=== PATIENT | female | born 1965 | race Caucasian/White ===

== ENCOUNTER 2018-05-28 19:38 | Inpatient (IN) | payer MEDICARE, MEDICAID ==
[2018-05-28 20:45] LABS: ABS Basophils 0.1 10^3/ul (0-0.2); ABS Eosinophils 0.2 10^3/ul (0-0.6); ABS Lymphocytes 3.2 10^3/ul (1.0-4.8); ABS Monocytes 0.5 10^3/ul (0-0.8); ABS Neutrophils 4.2 10^3/ul (1.5-7.7); ABS Nucleated RBC 0 10^3/ul; Eosinophil % 2.1 %; Hematocrit 42 % (35-47); Hemoglobin 14.6 g/dl (12.0-16.0); Lymphocyte % 39.2 %; Mean Corpuscular HGB Conc 34 g/dl (31-36); Mean Corpuscular Hemoglobin 33 pg (27-31); Mean Corpuscular Volume 95 fL (80-97); Nucleated Red Blood Cells % 0; Platelet Count 355 10^3/ul (150-450); Red Blood Count 4.47 10^6/ul (4.00-5.40); Red Cell Distribution Width 13 % (10.5-15); White Blood Count 8.1 10^3/ul (3.5-10.8)
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
[2018-05-28 20:57] LABS: Urine Appearance Clear; Urine Bilirubin Negative (Negative); Urine Blood Negative (Negative); Urine Color Straw; Urine Glucose Negative (Negative); Urine Ketones Negative (Negative); Urine Nitrite Negative (Negative); Urine Protein Negative (Negative); Urine Specific Gravity 1.003 (1.010-1.030); Urine Urobilinogen Negative (Negative)
[2018-05-28 21:03] LABS: ALT 20 U/L (7-52); AST 19 U/L (13-39); Albumin 4.3 g/dL (3.2-5.2); Albumin/Globulin Ratio 1.8 (1-3); Alkaline Phosphatase 66 U/L (34-104); Anion Gap 5 mmol/L (2-11); BUN/Creatinine Ratio 12.6 (8-20); Blood Urea Nitrogen 11 mg/dL (6-24); CO2 Carbon Dioxide 25 mmol/L (22-32); Calcium 9.3 mg/dL (8.6-10.3); Chloride 108 mmol/L (101-111); EGFR Non-African American 68.6 (>60); Globulin 2.4 g/dL (2-4); Glucose 109 mg/dL (70-100); Potassium 4.2 mmol/L (3.5-5.0); Sodium 138 mmol/L (135-145); Total Protein 6.7 g/dL (6.4-8.9)
[2018-05-28 21:08] LABS: Acetaminophen < 15 mcg/mL; Alcohol < 10 mg/dL (<10); Salicylate < 2.50 mg/dL (<30)
[2018-05-28 21:09] LABS: HCG Pregnancy < 0.60 mIU/mL
[2018-05-28 21:19] LABS: Barbiturates Urine Screen None Detected (None Detect); Benzodiazepine Urine Screen None Detected (None Detect); Urine Cannabinoids Screen None Detected (None Detect)
[2018-05-28 21:22] LABS: TSH (Thyroid Stimulating Horm) 2.53 mcIU/mL (0.34-5.60)
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
[2018-05-29] MEDS ORDERED: SUMAtriptan TAB* 50 MG PO PRN (13:43)
[2018-05-29] MEDS ORDERED: Albuterol HFA INHALER* 8 gm MDI INH PRN (13:43)
[2018-05-29] MEDS ORDERED: Mouth Piece, Nicotine* 1 EACH CARTRIDGE INH SCH (13:45)
[2018-05-29] MEDS ORDERED: Acetaminophen TAB* 325 MG PO PRN (13:45)
[2018-05-29] MEDS ORDERED: Al Hydrox/Mg Hydrox/Simet LIQ* 30 ML UDC PO PRN (13:45)
[2018-05-29] MEDS ORDERED: Nicotine GUM* 2 MG PO PRN (13:45)
[2018-05-29] MEDS: clonazePAM TAB(*) 1 MG PO SCH (22:13)
[2018-05-29] MEDS: Mometasone/Formoter 200/5 MDI INH SCH (22:15)
[2018-05-30] MEDS: Mometasone/Formoter 200/5 MDI INH SCH ×2 (08:51→21:24)
[2018-05-30] MEDS: Nicotine Inhaler* 10 MG AMP INH PRN ×2 (08:53→20:48)
[2018-05-30] MEDS: Vitamin THERAPEUTIC TAB PO SCH (08:54)
[2018-05-30] MEDS: Amitriptyline TAB* 10 MG PO SCH (13:59)
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
[2018-05-30] MEDS: clonazePAM TAB(*) 1 MG PO SCH (20:45)
[2018-05-31] MEDS: Nicotine Inhaler* 10 MG AMP INH PRN ×4 (04:10→17:05)
[2018-05-31] MEDS: Mometasone/Formoter 200/5 MDI INH SCH ×2 (08:34→20:40)
[2018-05-31] MEDS: Amitriptyline TAB* 10 MG PO SCH (08:34)
[2018-05-31] MEDS: Vitamin THERAPEUTIC TAB PO SCH (09:01)
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
[2018-05-31] MEDS: clonazePAM TAB(*) 1 MG PO SCH (20:37)
[2018-05-31] MEDS: QUEtiapine TAB* 100 MG PO SCH (20:38)
[2018-06-01] MEDS: Amitriptyline TAB* 10 MG PO SCH (07:42)
[2018-06-01] MEDS: Vitamin THERAPEUTIC TAB PO SCH (07:42)
[2018-06-01] MEDS: Mometasone/Formoter 200/5 MDI INH SCH ×2 (07:45→19:09)
[2018-06-01] MEDS: Nicotine Inhaler* 10 MG AMP INH PRN ×3 (12:27→19:10)
--- NOTE | 2018-06-01 16:31 | PN ---
Subjective - Subjective Date of Service: 06/01/18 Service Type: 05485 Hosp care 15 min low complexity Subjective: Fitz appears to be feeling better with regards to her mood and thinking. She sounds positive about herself and accepting of treatments here. Reports that meds and over all the hospitalization helped. Optimistic about the aftercare plans as most of it looks favorable to her. Denies, hallucinations, delusions or SI/HI. Objective - Appearance Appearance: Healthy Appearing, Obese Dysmorphic Features: No Hygiene: Normal Grooming: Well Kept - Behavior Psychomotor Activities: Normal - Attitude and Relatedness Attitude and Relatedness: Appropriate Eye Contact: Good - Speech Quality: Unpressured Latencies: Normal Quantity: Appropriate - Mood Patient's Decription of Mood: "Okay" - Affect Observed Affect: Non-labile Affect Consistent with: Euthymia - Thought Process Patient's Thought Process: Coherent, Goal Directed Thought Content: No Passive Wish, No Suicidal Planning, No Homicidal Ideation, No Paranoid Ideation - Sensorium Experiencing Hallucinations: No, Sensorium is Clear Type of Hallucinations: Visual: No, Auditory: No, Command: No - Level of Consciousness Level of Consciousness: Alert Orientation: Yes Intact, Yes Orientated to Time, Yes Orientated to Place, Yes Orientated to Person - Impulse Control Impulse Control: Intact - Insight and Judgement Insight and Judgement: Fair - Group Participation Particating in Group Activities: No - Medication Management Medication Management Adherence: Yes Assessment - Assessment Merits Inpatient Hospitalization: For Immediate Safety, For Stabilization, Pending Safe DC Plan Inpatient DSM-V Dx: F43.23 Clinical Impression: Underlying personality disorder and PTSD, but acute adjustment disorder leading to suicideal ideation and suicide risk. Multiple stressors require psychotherapy and stabilization. Requires safe discharge planning including developing social supports and referral to actual outpatient mental health provider. Will restart Seroquel at slightly increased dose since she has both anxiety and PTSD. She values benzodiazepines but I would not increase them and would actually consider a taper. Plan - Plan Treatment Plan: Name: FITZ GRANT Birthdate: 1965 [id number] Continued Medication Management: Continue Outpt Medication Medications: Current Medications Acetaminophen (Tylenol Tab*) 650 mg PO Q4H PRN PRN Reason: PAIN or TEMP > 101 F Al Hydrox/Mg Hydrox/Simethicone (Maalox Plus*) 30 ml PO Q4H PRN PRN Reason: INDIGESTION Albuterol (Ventolin Hfa Inhaler*) 2 puff INH Q4H PRN PRN Reason: SHORTNESS OF BREATH Last Admin: 05/30/18 08:51 Dose: 2 puff Amitriptyline HCl (Elavil Tab*) 10 mg PO DAILY [facility] Last Admin: 06/01/18 07:42 Dose: 10 mg Clonazepam (Klonopin Tab(*)) 2 mg PO BEDTIME [facility] Last Admin: 05/31/18 20:37 Dose: 2 mg Device (Nicotine Mouth Piece*) 1 each INH .CARTRIDGE [facility] Last Admin: 05/30/18 08:53 Dose: 1 each Mometasone Furoate/Formoterol Fumar (Dulera 200/5 Mdi*) 2 puff INH BID [facility] Last Admin: 06/01/18 07:45 Dose: 2 puff Multivitamins (Theragran Tab*) 1 tab PO DAILY [facility] Last Admin: 06/01/18 07:42 Dose: 1 tab Nicotine (Nicotine Inhaler*) 10 mg INH Q2H PRN PRN Reason: CRAVING Last Admin: 06/01/18 15:42 Dose: 10 mg Nicotine Polacrilex (Nicotine Gum*) 2 mg PO Q2H PRN PRN Reason: CRAVING Quetiapine Fumarate (Seroquel Tab*) 200 mg PO BEDTIME [facility] Last Admin: 05/31/18 20:38 Dose: 200 mg Sumatriptan Succinate (Imitrex Tab*) 50 mg PO DAILY PRN PRN Reason: MIGRAINE HEADACHE Last Admin: 05/30/18 22:19 Dose: 50 mg - Discharge Plan Discharge Plan: Outpatient Follow Up Outpatient Program: [facility]
[2018-06-01] MEDS: clonazePAM TAB(*) 1 MG PO SCH (19:08)
[2018-06-01] MEDS: QUEtiapine TAB* 100 MG PO SCH (19:08)
[2018-06-02] MEDS: Nicotine Inhaler* 10 MG AMP INH PRN ×3 (04:58→12:19)
[2018-06-02 08:44] VITALS: BP 116/86
[2018-06-02] MEDS: Vitamin THERAPEUTIC TAB PO SCH (09:39)
[2018-06-02] MEDS: Mometasone/Formoter 200/5 MDI INH SCH (09:39)
[2018-06-02] MEDS: Amitriptyline TAB* 10 MG PO SCH (09:39)
--- NOTE | 2018-06-02 13:35 | DCNOTE ---
Subjective - Subjective Service Types: 21105 Hosp DC Day Mgmt simple under 30 min Discharge Date: 06/02/18 Subjective: Patient reports desire to leave hospital in order to attend to her dog and other responsibilities. She denies SI, passive wish or urges for self harm. She states intent to relocate back to [place] in a few months. She agrees to follow up with outpatient mental health services. We discuss the importance of therapy and identifying ways to cope with prior trauma. Objective - Appearance Appearance: Well Developed/Nourished Dysmorphic Features: No Hygiene: Normal Grooming: Fairly Well Kept - Behavior Psychomotor Activities: Normal Exhibits Abnormal Movement: No - Attitude and Relatedness Attitude and Relatedness: Cooperative Eye Contact: Good - Speech Quality: Unpressured Latencies: Normal Quantity: Appropriate - Mood Patient's Decription of Mood: "Okay" - Thought Process Patient's Thought Process: Coherent, Goal Directed Thought Content: No Passive Wish, No Suicidal Planning, No Homicidal Ideation, No Paranoid Ideation - Sensorium Experiencing Hallucinations: No, Sensorium is Clear Type of Hallucinations: Visual: No, Auditory: No, Command: No - Level of Consciousness Orientation: Yes Intact, Yes Orientated to Time, Yes Orientated to Place, Yes Orientated to Person - Impulse Control Impulse Control: Intact - Insight and Judgement Insight and Judgement: Fair - Group Participation Particating in Group Activities: No - Medication Management Medication Management Adherence: Yes DC Assessment - Assessment Clinical Impression: 53yo wf, domiciled who presented to ED with suicidal ideation in the context of an argument with significant other. She no longer meets criteria for acute hospitalization. Merits Inpatient Hospitalization: No Clear for Discharge: Acceptable Safety Profile, Low Utility of Inpt Care Inpatient DSM-V Dx: F43.12 Discharge Planning - Discharge Planning Discharge Plan: Outpatient Follow Up Outpatient Program: [facility] Recommendations for Continuing Care: Medication Management, Psychotherapy Medications: Current Medications Acetaminophen (Tylenol Tab*) 650 mg PO Q4H PRN PRN Reason: PAIN or TEMP > 101 F Al Hydrox/Mg Hydrox/Simethicone (Maalox Plus*) 30 ml PO Q4H PRN PRN Reason: INDIGESTION Albuterol (Ventolin Hfa Inhaler*) 2 puff INH Q4H PRN PRN Reason: SHORTNESS OF BREATH Last Admin: 05/30/18 08:51 Dose: 2 puff Amitriptyline HCl (Elavil Tab*) 10 mg PO DAILY [facility] Last Admin: 06/02/18 09:39 Dose: 10 mg Clonazepam (Klonopin Tab(*)) 2 mg PO BEDTIME [facility] Last Admin: 06/01/18 19:08 Dose: 2 mg Device (Nicotine Mouth Piece*) 1 each INH .CARTRIDGE [facility] Last Admin: 05/30/18 08:53 Dose: 1 each Mometasone Furoate/Formoterol Fumar (Dulera 200/5 Mdi*) 2 puff INH BID [facility] Last Admin: 06/02/18 09:39 Dose: 2 puff Multivitamins (Theragran Tab*) 1 tab PO DAILY [facility] Last Admin: 06/02/18 09:39 Dose: Not Given Nicotine (Nicotine Inhaler*) 10 mg INH Q2H PRN PRN Reason: CRAVING Last Admin: 06/02/18 12:19 Dose: 10 mg Nicotine Polacrilex (Nicotine Gum*) 2 mg PO Q2H PRN PRN Reason: CRAVING Quetiapine Fumarate (Seroquel Tab*) 200 mg PO BEDTIME [facility] Last Admin: 06/01/18 19:08 Dose: 200 mg Sumatriptan Succinate (Imitrex Tab*) 50 mg PO DAILY PRN PRN Reason: MIGRAINE HEADACHE Last Admin: 05/30/18 22:19 Dose: 50 mg Discharge Planning: Prescriptions provided for discharge [x] Yes [] No Follow up care details as per social work arrangements. Patient response to discharge plan: [x] eager for discharge [x] agreeable with discharge plan [] ambivalent about discharge [] disagrees with discharge today
--- NOTE | 2018-06-03 12:25 | DS ---
CC: [facility]; DANETTE Larson in [place]* DATE OF ADMISSION: 05/29/2018. DATE OF DISCHARGE: 06/02/2018. SUPERVISING PSYCHIATRIST: Dr. Jorge Luis Mosher* (dictated by OTTO Menezes) . DISCHARGE DIAGNOSES: PTSD, borderline personality disorder. CONDITION AT THE TIME OF DISCHARGE: Improved. The patient is euthymic with congruent affect. She reports desire to be discharged. She states that she has not had thoughts of suicide during the course of the admission. We discussed the relationship with her significant other. The patient is mildly ambivalent in regards to continuing the relationship and she also goes on to complain about various things about him that are frustrating, including not paying rent and continually asking her to help support him despite him being employed. This health technical writer discussed the importance of continuing therapy to identify healthy boundaries and coping skills. The patient reports desire for intake at community mental health center. She also states the need to leave the hospital in order to attend to her dog and other responsibilities. MENTAL STATUS EXAM: The patient is a 53-year-old, white female, moderately overweight wearing hospital scrubs. She is adequately groomed. She is wearing glasses. The patient is alert and oriented times three. Eye contact is good. Speech is soft and articulate. She describes her mood as "ready to go." Thought process is circumstantial, otherwise logical and coherent. Thought content denies suicidal ideation and passive wish. There are no observed perceptual disturbances. Insight and judgment are fair and fund of knowledge is excellent. INSTRUCTIONS GIVEN TO PATIENT: A. Medications: Amitriptyline 10 mg p.o. daily, Quetiapine 200 mg p.o. daily. The patient will continue on the following medications with primary care: Albuterol powder for ProAir RespiClick, Ventolin rescue inhaler, Symbicort, Clonazepam 2 mg p.o. b.i.d., we did change this to 2 mg at bedtime, Cyclobenzaprine 5 mg p.o. b.i.d., Levocetirizine 5 mg p.o. daily, Dulera two puffs inhaled b.i.d., Amitriptyline. New prescriptions for medications that were changed were sent to [facility] in [place]. B. Diet: Regular. C. Activity: As tolerated. Tobacco cessation was declined by the patient. There are no pending labs or diagnostic studies. D. Follow-up care: The patient will follow-up at [facility] and has an intake appointment on June 03. She can follow -up with her primary care provider, DANETTE Larson, and has an appointment on June 14. E. Substance use follow-up: Not applicable. HOSPITAL COURSE - PART A: Reason for admission: The patient presented to the emergency department via ambulance after her live-in boyfriend called for help. Adelaida was upset with her live-in boyfriend and told him that she was going to shoot herself in the head with a gun to make him happy. Please see full history and physical from Dr. Tapia on May 29. HOSPITAL COURSE - PART B: Psychiatric treatment rendered: The patient was admitted to the Adult Behavioral Services Unit on status. Her code status was full. She was placed on 15 minute checks for safety. She met with the admitting psychiatrist and reported unwillingness to take an antidepressant due to multiple failed trials. She presented with predominantly personality disorder traits. She also reported a history of trauma. On the unit, the patient was calm and in behavioral control. She was primarily seclusive and did not engage in unit routines. She was safe on all checks and denied suicidal ideation. She utilized the phone to coordinate care for her dog. The patient reports that her now ex-boyfriend is staying with his children. We discussed ways to avoid interacting with him. She states that she did talk with domestic advocacy personnel. We discussed the importance of continuing therapy to identify a healthy relationship and boundaries, along with coping skills to deal with prior trauma. We increased Quetiapine to improve sleep and mood stabilization. Otherwise medications remain the same. On the day of discharge , the patient had fulfilled expectations given to her by on-call psychiatrist, including identifying social supports utilizing advocacy center and agreeing to continued outpatient therapy. Due to low utility of inpatient treatment and mitigated lethality, discharge was deemed appropriate by treatment team. ALEC DONATO, OTTO [id number]/[facility] #: [id number] ERIN
== END 2018-06-02 14:42 | disposition home or self-care (01) | DRG 882 ==
LOC: ED 19:38 → BSU 05-29 11:44
PROVIDERS: ADMIT Psychiatry & Neurology Psychiatry; ATTEND Psychiatry & Neurology Psychiatry
DX: F43.23 Adjustment disorder with mixed anxiety and depressed mood (principal); R45.851 Suicidal ideations; F43.12 Post-traumatic stress disorder, chronic; M19.90 Unspecified osteoarthritis, unspecified site; R52 Pain, unspecified; M72.2 Plantar fascial fibromatosis
CPT/HCPCS: 36415; 80053; 80307; 80320; 80329; 81003; 84443; 84702; 85025; 93005; 99222; 99231; 99233; 99238; 99285; A9270-GY; G0480